=== PATIENT | male | born 1960 ===

== ENCOUNTER 2018-06-10 15:16 | Outpatient (CLI) | payer OTHER | END 2018-06-10 18:00 | disposition home or self-care (01) | LOC: LAB 15:16 | DX: J11.1 Influenza due to unidentified influenza virus with other respiratory manifestations (principal) ==

== ENCOUNTER 2021-05-30 13:26 | Outpatient (CLI) | payer OTHER | END 2021-05-30 13:28 | disposition home or self-care (01) | LOC: LAB 13:26 | PROVIDERS: ATTEND Obstetrics & Gynecology | DX: Z20.828 Contact with and (suspected) exposure to other viral communicable diseases (principal) ==

== ENCOUNTER 2021-06-01 12:06 | Outpatient (CLI) | payer OTHER | END 2021-06-01 12:10 | disposition home or self-care (01) | LOC: LAB 12:06 | DX: Z11.52 Encounter for screening for COVID-19 (principal) ==

== ENCOUNTER 2021-10-05 17:32 | Outpatient (CLI) | payer OTHER | END 2021-10-05 17:35 | disposition home or self-care (01) | LOC: LAB 17:32 | DX: Z20.828 Contact with and (suspected) exposure to other viral communicable diseases (principal); Z20.822 Contact with and (suspected) exposure to COVID-19; Z11.52 Encounter for screening for COVID-19 ==

== ENCOUNTER 2021-10-12 10:12 | Outpatient (CLI) | payer OTHER | END 2021-10-12 15:00 | disposition home or self-care (01) | LOC: LAB 10:12 | DX: Z20.828 Contact with and (suspected) exposure to other viral communicable diseases (principal); Z20.822 Contact with and (suspected) exposure to COVID-19 ==